=== PATIENT | male | born 1985 | race Caucasian/White ===

== ENCOUNTER 2023-12-26 10:55 | Emergency (ER) | payer OTHER, SELFPAY ==
[2023-12-26 11:16] VITALS: BP 130/90; PULSE 70; RESP 18; TEMP 36.4; O2SAT 100
--- NOTE | 2023-12-26 11:25 | ED.NECK ---
HPI - Neck Pain/Injury General Chief Complaint: Neck Pain/Injury Stated Complaint: neck pain Time Seen by Provider: 12/26/23 11:25 Source: patient Mode of arrival: ambulatory Limitations: no limitations History of Present Illness HPI Narrative: 38 yo M presents with c/o neck pain. Has bulging disk. Has had pain to neck and R arm for 1 month. Was seen at [facility] ER and saw a neurosurgeon at [facility] also. Completed an MRI but does not have results or a follow up with neurology. Taking gabapentin which she states is not helping pain. Patient lives in [place] pat comes over to [facility] to see a chiropractor. Has been seeing chiropractor 3 days a week. States chiropractor mention that prednisone may help his pain. Patient would like to try prednisone and a different muscle relaxant. Patient states that he tried methocarbamol and it did not. All systems reviewed and negative except as noted above. Related Data Home Medications Medication Instructions Recorded Confirmed gabapentin 300 mg capsule mg 12/26/23 Allergies Allergy/AdvReac Type Severity Reaction Status Date / Time No Known Allergies Allergy Verified 12/26/23 11:18 Review of Systems Review of Systems: CONSTITUTIONAL: Denies fever, chills, or sweats. EYES: Denies visual changes, redness, or discharge. ENT: Denies rhinorrhea, congestion, sore throat, or otalgia. CARDIOVASCULAR: Denies chest pain, palpitations, or edema. RESPIRATORY: Denies cough or dyspnea. GASTROINTESTINAL: Denies abdominal pain, nausea, vomiting, or diarrhea. GENITOURINARY: Denies dysuria or hematuria. SKIN: Denies rash or itching. MUSCULOSKELETAL: Denies back pain, joint pain, or myalgia. Reports neck pain with radiation to right arm. NEUROLOGIC: Denies headache, numbness, or weakness. PSYCHIATRIC: Denies anxiety or depression. All other systems reviewed are negative, except as documented in HPI. PMFSH Comments At time of signature, agree with nursing past medical, surgical, social and family history. There is no relevant family history pertinent to the presenting complaint. Exam Narrative: GENERAL: This is a well-nourished, well-developed patient, in no apparent distress. HEAD: normocephalic, atraumatic. EYES: PERRL. Sclera clear/white. Vision is grossly intact. EARS: External ears normal NOSE: External nose normal NECK: Neck supple, without lymphadenopathy, masses or thyromegaly. Tenderness to C5, C6. Decreased range of motion due to pain. CARDIOVASCULAR: Regular rate and rhythm without murmurs, gallops, or rubs. RESPIRATORY: Clear to auscultation. Breath sounds equal bilaterally. No wheezes, rales, or rhonchi. SKIN: warm, Dry, intact with no suspicious lesions or rash, good texture and turgor. NEURO: awake, alert, and oriented to person, place and time. There were no obvious focal neurologic abnormalities. EXTREMITIES: No joint tenderness, effusion, or edema noted. Course Course Level of Care: Express Care Visit Vital Signs Vital signs: Reviewed MDM - Neck Pain/Injury MDM Narrative Medical decision making narrative: pt already seeing neurosurgeon at [facility] for neck pain. will prescribe prednisone and flexeril. Patient is not having any worsening his neck pain or new neuro deficits to right arm. Patient is aware of diagnosis, understands and agrees to treatment plan. Anticipatory guidance given. Patient agrees to follow-up as directed and is aware of reasons to seek care at the emergency department. Portions of this record may have been created with voice recognition software Discharge Plan Discharge Clinical Impression: Acute neck pain Patient Disposition: Home, Self-Care Condition: Stable Instructions: Neck Pain (ED) Additional Instructions: take medications as prescribed. Cyclobenzaprine as a muscle relaxant and will make you drowsy. Do not drive while taking this medication. Continue to take Tylenol or ibuprofe
== END 2023-12-26 11:44 | disposition home or self-care (01) ==
PROVIDERS: Emergency Provider Nurse Practitioner Family
DX: M54.2 Cervicalgia (principal)
CPT/HCPCS: 99203; G0463